=== PATIENT | female | born 1965 | race Caucasian/White ===

== ENCOUNTER 2025-11-05 16:18 | Outpatient (CLI) | payer BC, SELFPAY | END 2025-11-05 16:19 | disposition home or self-care (01) | PROVIDERS: PCP Family Medicine; Visit Provider Family Medicine | DX: G43.009 Migraine without aura, not intractable, without status migrainosus (principal); K12.1 Other forms of stomatitis; M81.0 Age-related osteoporosis without current pathological fracture; Z13.6 Encounter for screening for cardiovascular disorders; R23.3 Spontaneous ecchymoses | CPT/HCPCS: 80053; 80061; 82306; 82607; 86140 ==

== ENCOUNTER 2025-11-11 15:23 | Outpatient (CLI) | payer BC, SELFPAY ==
--- NOTE | 2025-11-11 16:00 | CRLHL7_ITS ---
For Patients: As a result of the Century Cures Act, medical imaging exams and procedure reports are released immediately into your electronic medical record. You may view this report before your referring provider. If you have questions, please contact your health care provider. INDICATION: History of traumatic brain injury TECHNIQUE: CT of the head without and with IV contrast is submitted. No comparisons. 49 cc of Isovue 370 was administered intravenously. FINDINGS: The ventricles, sulci and gyri are of normal size, shape and contour. Midline structures are centrally located. No convincing evidence of intra- or extra-axial fluid collections. No suspicious regions of abnormal contrast enhancement. IMPRESSION: 1. No radiographic evidence of acute intracranial abnormalities. Please note that all CT scans at this facility use dose modulation, iterative reconstruction, and/or weight-based dosing when appropriate to reduce radiation dose to as low as reasonably achievable. Dictated by Blaine Garibay MD @ 11/12/2025 11:22:14 AM (Electronically Signed)
== END 2025-11-11 15:24 | disposition home or self-care (01) ==
PROVIDERS: PCP Family Medicine; Visit Provider Family Medicine
DX: G44.319 Acute post-traumatic headache, not intractable (principal); Z87.820 Personal history of traumatic brain injury
CPT/HCPCS: 70470; Q9967